=== PATIENT | female | born 1970 | race Caucasian/White ===

== ENCOUNTER 2017-12-12 21:13 | Emergency (ER) | payer OTHER ==
[~2017-12-12] VITALS: Ht 172.7 cm; Wt 80.7 kg
[2017-12-12] MEDS ORDERED: NEOMY/BACITRA/POLYMYXIN B OINT UD PACKET TP ONE (22:40)
[2017-12-12] MEDS ORDERED: TDAP DIPH,PERTUSS,TET VAC/PF 0.5 ML DISP.SYRIN IM ONE (22:41)
[2017-12-12] MEDS ORDERED: AMOXICILLIN-CLAVUL 875-125MG TABLET ONE (22:41)
[2017-12-12] MEDS: AMOXICILLIN-CLAVUL 875-125MG TABLET PO ONE (22:49)
[2017-12-12] MEDS: NEOMY/BACITRA/POLYMYXIN B OINT UD PACKET TP ONE (22:49)
[2017-12-12] MEDS: TDAP DIPH,PERTUSS,TET VAC/PF 0.5 ML DISP.SYRIN IM ONE (22:53)
--- NOTE | 2017-12-12 22:54 | NUR ---
Patient discharged to home in stable conditon. Written and verbal after care instructions given. Patient verbalizes understanding of instructions. Ambulated from ER with stable gait. All belongings with patient.
[2017-12-12 22:55] VITALS: BP 121/74
== END 2017-12-12 22:56 | disposition home or self-care (01) ==
LOC: ER 21:15
DX: S61.250A Open bite of right index finger without damage to nail, initial encounter (principal); E03.9 Hypothyroidism, unspecified; W55.01XA Bitten by cat, initial encounter; Y93.89 Activity, other specified; Y92.89 Other specified places as the place of occurrence of the external cause; Y99.8 Other external cause status
CPT/HCPCS: 90715; A4663